=== PATIENT | female | born 1960 | race Caucasian/White ===

== ENCOUNTER 2021-01-18 10:25 | Day surgery (SDC) | payer OTHER ==
[2021-01-13 11:58] VITALS: BMI 24.0
[2021-01-18] MEDS ORDERED: PROPOFOL 20 ML ONE ×3 (11:40)
[2021-01-18 12:26] VITALS: BP 114/78; PULSE 69
[2021-01-18 12:29] VITALS: TEMP 98
== END 2021-01-18 12:28 | disposition home or self-care (01) ==
LOC: FASU-ENDO 10:25
PROVIDERS: ATTEND Internal Medicine Gastroenterology
PROC: 0DJD8ZZ Inspection of Lower Intestinal Tract, Via Natural or Artificial Opening Endoscopic (ICD-10-PCS; principal; 2021-01-18 11:30)
DX: Z12.11 Encounter for screening for malignant neoplasm of colon (principal); K64.4 Residual hemorrhoidal skin tags; K57.30 Diverticulosis of large intestine without perforation or abscess without bleeding

== ENCOUNTER 2023-03-13 09:24 | Day surgery (SDC) | payer OTHER ==
[2023-03-04 15:43] VITALS: BMI 24.9
[2023-03-13 11:17] VITALS: RESP 18
[2023-03-13 11:56] VITALS: TEMP 96.4
[2023-03-13 12:05] VITALS: BP 102/63; PULSE 66
== END 2023-03-13 12:20 | disposition home or self-care (01) ==
LOC: FASU-ENDO 09:24
PROVIDERS: ATTEND Internal Medicine Gastroenterology
PROC: 0DB68ZX Excision of Stomach, Via Natural or Artificial Opening Endoscopic, Diagnostic (ICD-10-PCS; 2023-03-13)
PROC: 0DB48ZX Excision of Esophagogastric Junction, Via Natural or Artificial Opening Endoscopic, Diagnostic (ICD-10-PCS; 2023-03-13)
PROC: 0DB98ZX Excision of Duodenum, Via Natural or Artificial Opening Endoscopic, Diagnostic (ICD-10-PCS; principal; 2023-03-13 11:37)
DX: K25.9 Gastric ulcer, unspecified as acute or chronic, without hemorrhage or perforation (principal); K29.50 Unspecified chronic gastritis without bleeding; K21.00 Gastro-esophageal reflux disease with esophagitis, without bleeding; R10.13 Epigastric pain

== ENCOUNTER 2023-09-18 10:30 | Day surgery (SDC) | payer OTHER ==
[2023-09-10 14:31] VITALS: BMI 22.6
[2023-09-18 12:40] VITALS: RESP 18; TEMP 97
[2023-09-18 12:42] VITALS: BP 121/71; PULSE 73
== END 2023-09-18 13:14 | disposition home or self-care (01) ==
LOC: FASU-ENDO 10:30
PROVIDERS: ATTEND Internal Medicine Gastroenterology
PROC: 0DB68ZX Excision of Stomach, Via Natural or Artificial Opening Endoscopic, Diagnostic (ICD-10-PCS; 2023-09-18)
PROC: 0DJD8ZZ Inspection of Lower Intestinal Tract, Via Natural or Artificial Opening Endoscopic (ICD-10-PCS; principal; 2023-09-18 11:54)
DX: Z12.11 Encounter for screening for malignant neoplasm of colon (principal); K64.1 Second degree hemorrhoids; K57.30 Diverticulosis of large intestine without perforation or abscess without bleeding; K29.50 Unspecified chronic gastritis without bleeding; K25.9 Gastric ulcer, unspecified as acute or chronic, without hemorrhage or perforation; Z87.11 Personal history of peptic ulcer disease
CPT/HCPCS: 43239; G0121; 88305-TC; 88342-TC